=== PATIENT | female | born 1955 | race Caucasian/White ===

== ENCOUNTER 2022-06-14 10:43 | Outpatient (CLI) | payer MEDICARE, BC, SELFPAY ==
[2022-06-14 13:46] LABS: Chloride* 104 mmol/L (96-114); Potassium* 4.4 mmol/L (3.6-5.1); Sodium* 139 mmol/L (135-149)
[2022-06-14 13:49] LABS: Blood Urea Nitrogen* 11 mg/dL (7-30); Carbon Dioxide* 27 mmol/L (20-32); Creatinine* 0.7 mg/dL (0.5-1.5); Estimated Glomerular Filt Rate 94 ml/min
[2022-06-14 13:50] LABS: Calcium* 8.8 mg/dL (8.4-10.6); Glucose* 108 mg/dL (60-115)
== END 2022-06-14 10:44 | disposition home or self-care (01) ==
LOC: FBOREF 10:44
PROVIDERS: PCP Family Medicine; Visit Provider Family Medicine
DX: U07.1 COVID-19 (principal); J98.9 Respiratory disorder, unspecified
CPT/HCPCS: 80048

== ENCOUNTER 2023-01-13 12:11 | Emergency (ER) | payer MEDICARE, BC, SELFPAY ==
[2023-01-13 12:16] VITALS: BP 176/99; PULSE 72; RESP 16; TEMP 36.7; O2SAT 96; BMI 27.5
[2023-01-13 12:32] VITALS: PULSE 78; O2SAT 97
[2023-01-13 12:33] VITALS: PULSE 77; O2SAT 96
--- NOTE | 2023-01-13 12:41 | ED.GENADULT ---
HPI - General Adult General Chief complaint: Dizziness/Vertigo Stated complaint: Dizziness Time Seen by Provider: 01/13/23 12:14 Source: patient Mode of arrival: ambulatory Limitations: no limitations History of Present Illness HPI narrative: Patient is a ike 67-year-old female coming in today complaining of dizziness. She states it has been going on for about 2 weeks. The 1st episode happened at 2:00 a.m. in the morning when she woke up and tried to get out of bed. She states that when she sat up the whole room started spinning and she had to lay back down again. She would fall back asleep but noticed that when she woke up in the morning that sensation was still there. She states that it it has been occurring on and off since then. Usually is when she is looking side to side when the sensation of the room spinning hits her. If she sits perfectly still that sensation subsides within several seconds. She denies any other systemic symptoms such as nausea, vomiting, neck pain. She does have a mild headache on and off. She denies any vision or hearing changes. No changes in her speech. No difficulty with concentration or comprehension. She denies any focal neurologic deficits. No changes in her gait or strength. Related Data Previous Rx's Medication Instructions Recorded meclizine 25 mg tablet 25 mg PO BID PRN #10 tabs 01/13/23 Allergies Allergy/AdvReac Type Severity Reaction Status Date / Time oxycodone Allergy Intermediate Emesis Verified 01/13/23 12:26 hydrocodone Allergy Mild Itching Verified 01/13/23 12:26 Review of Systems Status of ROS: Reports: 10 or more systems reviewed and unremarkable except as noted in History and below [facility] Medical History COVID-19 virus infection Surgical History History of meniscectomy of right knee (2010) Status post breast reduction (2011) Status post laparoscopic cholecystectomy (2005) 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 Alert and oriented. Answers questions appropriately. Mood and affect are appropriate. Thoughts are goal oriented and rational. No tangential or magical thinking noted. Patient speaks in full sentences without needing to catch their breath. HEENT: Normocephalic atraumatic. Pupils are equally round reactive to light. Extraocular muscles are intact. Conjunctivae are moist without any icterus noted. Moist mucous membranes. Posterior pharynx is normal. Neck is soft. TMs are clear bilaterally. Cardiovascular: Heart is regular rate and rhythm S1 and S2 are present without any murmurs. Lungs: Clear to auscultation bilaterally no wheezes rhonchi or rales are appreciated. Patient takes deep breaths without any discomfort. Abdomen: Soft and nontender nondistended with normal bowel sounds. Extremities: Bilateral lower extremities are without edema. Normal DP and PT pulses. Skin: Well perfused without any obvious rashes. Strength is 5/5 of the upper and lower extremities. Reflexes are 2+ and symmetric at the knees. Cranial nerves 3-12 are normal. [id number] is normal. There is no nystagmus either horizontally or vertically when she is sitting still. Gait is normal. Hallpike test is positive when the patient looks to the left. Const: Vital Signs, click to edit/add: Vital Signs - 24 hr 01/13/23 12:16 01/13/23 12:32 01/13/23 12:33 Temperature 98.0 F Pulse Rate 78 77 Pulse Rate [Left P ulse Oximeter] 72 Respiratory Rate 16 Blood Pressure 166/107 H Blood Pressure [Ri ght Upper Arm] 176/99 H Pulse Oximetry 96 97 96 Oxygen Delivery Me thod Room Air Room Air Course Vital Signs Vital signs: Initial Vital Signs Temperature 98.0 F 01/13/23 12:16 Temperature Source Temporal Artery Scan 01/13/23 12:16 Pulse Rate 72 01/13/23 12:16 Respiratory Rate 16 01/13/23 12:16 Blood Pressure 176/99 H 01/13/23 12:16 Blood Pressure Mean 124 01/13/23 12:16 Blood Pressure Position Sitting 01/13/23 12:16 Pulse Oximetry 96 01/13/23 12:16 Oxygen Delivery Method 01/13/23 12:16 Vital Signs Temperature 98.0 F 01/13/23 12:16 Pulse Rate 72 01/13/23 12:16 Respiratory Rate 16 01/13/23 12:16 Blood Pressure 176/99 H 01/13/23 12:16 Pulse Oximetry 96 01/13/23 12:16 Oxygen Delivery Method 01/13/23 12:16 Temperature 98.0 F 01/13/23 12:16 Pulse Rate 77 01/13/23 12:33 Respiratory Rate 16 01/13/23 12:16 Blood Pressure 166/107 H 01/13/23 12:32 Pulse Oximetry 96 01/13/23 12:33 Oxygen Delivery Method 01/13/23 12:32 Medical Decision Making MDM Narrative Medical decision making narrative: 67-year-old female with vertigo. Her history and physical are consistent with benign paroxysmal positional vertigo. We discussed hydration, moving slowly, meclizine, and Sherine maneuver. We discussed reasons for follow-up. Patient was agreeable and had no other questions. Differential Diagnosis Differential Diagnosis: Labyrinthitis, Meniere's, TIA Discharge Plan Discharge Clinical Impression: Benign paroxysmal positional vertigo Patient Disposition: Home, Self-Care Condition: Stable Additional Instructions: Stay well hydrated, get plenty of rest. You can look up and perform the Sherine maneuver at home. Follow-up with your primary care provider if you are not improving over the next couple weeks. Prescriptions: New meclizine 25 mg tablet 25 mg PO BID PRNQty: 10 0RF Follow Up/Referrals: Nehemiah Sandoval MD [Primary Care Provider] - Stand Alone Forms: [employer] Info Instructions
[2023-01-13 12:45] VITALS: PULSE 63; O2SAT 93
[2023-01-13 12:59] VITALS: BP 139/94
== END 2023-01-13 13:01 | disposition home or self-care (01) ==
LOC: ED 12:54
PROVIDERS: Emergency Provider Family Medicine; PCP Family Medicine
DX: H81.10 Benign paroxysmal vertigo, unspecified ear (principal)
CPT/HCPCS: 99283; 99284

== ENCOUNTER 2024-10-25 11:50 | Emergency (ER) | payer MEDICARE, BC, SELFPAY ==
[2024-10-25 11:56] VITALS: BP 147/92; PULSE 77; RESP 18; TEMP 36.6; O2SAT 94; BMI 27.5
--- NOTE | 2024-10-25 12:05 | ED.GENADULT ---
HPI - General Adult General Time Seen by Provider: 12:05 Date Seen: 10/25/24 Chief complaint: Extremity Pain/Injury, Lower Stated complaint: R leg pain Time Seen by Provider: 10/25/24 12:04 Source: patient, RN notes reviewed and old records reviewed Mode of arrival: ambulatory Limitations: no limitations History of Present Illness HPI narrative: 69-year-old female who presents today with right knee and leg pain. Patient noted right knee pain and stiffness this morning she got up, pain with walking. Pain is behind the knee. No swelling, no known injury. Has not taken anything for this. Related Data Home Medications ?Medication ?Instructions ?Recorded ?Confirmed No Known Home Medications 11/28/23 01/20/24 Allergies Allergy/AdvReac Type Severity Reaction Status Date / Time oxycodone Allergy Intermediate Emesis Verified 01/20/24 11:27 hydrocodone Allergy Mild Itching Verified 01/20/24 11:27 PFSH PFS Medical History (Updated 10/25/24 @ 12:55 by Brendan Willis MD) COVID-19 virus infection ?U07.1 - COVID-19 (ICD-10) Surgical History (Updated 11/24/23 @ 11:19 by Jami Rodas) History of tonsillectomy ?Z90.89 - Acquired absence of other organs (ICD-10) H/O laparoscopy ?Z98.890 - Other specified postprocedural states (ICD-10) Status post trigger finger release (02/17/21) ?Z98.890 - Other specified postprocedural states (ICD-10) Status post total right knee replacement (09/30/19) ?Z96.651 - Presence of right artificial knee joint (ICD-10) Status post laparoscopic cholecystectomy (2005) ?Z90.49 - Acquired absence of other specified parts of digestive tract (ICD-10) Status post breast reduction (2011) ?Z98.890 - Other specified postprocedural states (ICD-10) History of meniscectomy of right knee (2010) ?Z98.890 - Other specified postprocedural states (ICD-10) Family History (Updated 11/24/23 @ 09:08 by Yissel Garrett ~ [facility]) Mother Stroke Brother Lymphoma Other DVT (deep venous thrombosis) High blood pressure Peripheral vascular disease Social History Narrative: , no kids, [facility] long-term care, non-smoker, social EtOH Smoking Status: Never smoker Do you use any of these nicotine containing products: None Second hand tobacco smoke exposure: No How often do you have a drink containing alcohol: 2-3 times a week AUDIT-C Alcohol total score: 3 Non-prescribed substance use: denies use Exam Narrative: Exam Narrative: General: well nourished , NAD Head: Atraumatic and normocephalic ENT: External ears and external nose are normal Eyes: Conjunctiva clear, pupils are equal reactive, external ocular motions are intact Neck: Full spontaneous range of motion of the neck Lungs: No respiratory distress Musculoskeletal: Mild popliteal tenderness on the right, no calf tenderness, pulses intact, no joint effusion, redness, or warmth Neurologic: No gross focal neurologic deficits Skin: No rashes Psych: Mood and affect are appropriate Const: Vital Signs, click to edit/add: Vital Signs - 24 hr 10/25/24 11:56 Temperature 97.8 F Pulse Rate [Pulse Oximeter] 77 Respiratory Rate 18 Blood Pressure [Ri ght Upper Arm] 147/92 H Pulse Oximetry 94 Oxygen Delivery Me thod Room Air Course Course ED Course: Reviewed prior office visit from January 2024 which was for right foot pain and ingrown toenail, this was removed and no follow-up. Patient presents today with pain in the right knee. Patient woke with pain today, no injury or increased activity, prior knee replacement on that side. Is not taking anything for this, concerned about blood clot. On exam, popliteal tenderness along with some tenderness of the medial hamstring. No joint effusion, no redness or warmth. Suspect soft tissue injury, possible Conway cyst. DVT is clinically less likely but patient is quite concerned about this, ultrasound is ordered. Reevaluation(s) Time of Reevaluation #1: 12:54 Reevaluation #1: Ultrasound of the right lower extremity negative for acute findings, patient is stable for discharge with symptom management, use of assistive devices as needed for ambulation. Follow-up with orthopedics next week if symptoms are not significantly improved Vital Signs Vital signs: Initial Vital Signs Temperature 97.8 F 10/25/24 11:56 Temperature Source Temporal Artery Scan 10/25/24 11:56 Pulse Rate 77 10/25/24 11:56 Pulse Rhythm Regular 10/25/24 11:56 Respiratory Rate 18 10/25/24 11:56 Blood Pressure 147/92 H 10/25/24 11:56 Blood Pressure Mean 110 H 10/25/24 11:56 Blood Pressure Position High-Fowlers 10/25/24 11:56 Pulse Oximetry 94 10/25/24 11:56 Oxygen Delivery Method Room Air 10/25/24 11:56 Vital Signs Temperature 97.8 F 10/25/24 11:56 Pulse Rate 77 10/25/24 11:56 Respiratory Rate 18 10/25/24 11:56 Blood Pressure 147/92 H 10/25/24 11:56 Pulse Oximetry 94 10/25/24 11:56 Oxygen Delivery Method Room Air 10/25/24 11:56 Temperature 97.8 F 10/25/24 11:56 Pulse Rate 77 10/25/24 11:56 Respiratory Rate 18 10/25/24 11:56 Blood Pressure 147/92 H 10/25/24 11:56 Pulse Oximetry 94 10/25/24 11:56 Oxygen Delivery Method Room Air 10/25/24 11:56 Discharge Plan Discharge Clinical Impression: Acute pain of right knee Patient Disposition: Home, Self-Care Condition: Stable Instructions: Knee Pain (ED), Heat Pack Application (ED) Additional Instructions: Tylenol and ibuprofen as needed for pain. Warm packs or cool packs for comfort Follow-up with orthopedics next week if symptoms are not significantly better Activity Level: Activity as Tolerated Discharge Diet: Regular Prescriptions: No Action No Known Home Medications Follow Up/Referrals: Nehemiah Sandoval MD [Primary Care Provider] - Stand Alone Forms: [employer] Info Instructions
--- NOTE | 2024-10-25 12:13 | CRLHL7_ITS ---
For Patients: As a result of the Century Cures Act, medical imaging exams and procedure reports are released immediately into your electronic medical record. You may view this report before your referring provider. If you have questions, please contact your health care provider. INDICATION: Right lower extremity swelling. TECHNIQUE: Right lower extremity Doppler venous ultrasound examination was performed. Grayscale and color Doppler images were obtained. COMPARISON: None. FINDINGS: RIGHT LOWER EXTREMITY: Common femoral vein: Fully compressible. No deep vein thrombus. Normal flow and response to augmentation on color Doppler imaging. Superficial femoral vein: Fully compressible. No deep vein thrombus. Normal flow on color Doppler imaging. Deep femoral vein: No deep vein thrombus Popliteal vein: Fully compressible. No deep vein thrombus. Normal flow on color Doppler imaging. Lower calf: The visualized posterior tibial and peroneal veins are fully compressible. No deep vein thrombus. Normal flow and response to augmentation on color Doppler imaging. Superficial veins: The superficial veins, including the greater saphenous vein, remain patent and are fully compressible. Soft tissues: No popliteal fossa fluid collection identified. LEFT LOWER EXTREMITY: Common femoral vein: Fully compressible. No deep vein thrombus. Normal flow and response to augmentation on color Doppler imaging. IMPRESSION: No deep vein thrombus within the right lower extremity. Dictated by Blake Allen MD @ 10/25/2024 12:51:34 PM (Electronically Signed)
== END 2024-10-25 13:05 | disposition home or self-care (01) ==
PROVIDERS: Emergency Provider Family Medicine; PCP Family Medicine
DX: M25.561 Pain in right knee (principal)
CPT/HCPCS: 93971; 99284